=== PATIENT | female | born 1960 | race African-American/Black ===

== ENCOUNTER 2017-06-11 08:38 | Emergency (ER) | payer OTHER, MEDICAID ==
[2017-06-11] MEDS ORDERED: OXYCODONE-ACETAMINOPHEN 5-325 MG TABLET PO ONE (09:19)
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
[2017-06-11 10:33] VITALS: BP 179/86
== END 2017-06-11 10:25 | disposition home or self-care (01) ==
LOC: ER 08:38
PROC: 2W3QX1Z Immobilization of Right Lower Leg using Splint (ICD-10-PCS; principal; 2017-06-11)
DX: S63.509A Unspecified sprain of unspecified wrist, initial encounter (principal); S72.102A Unspecified trochanteric fracture of left femur, initial encounter for closed fracture; S93.401A Sprain of unspecified ligament of right ankle, initial encounter; S16.1XXA Strain of muscle, fascia and tendon at neck level, initial encounter; S29.012A Strain of muscle and tendon of back wall of thorax, initial encounter; M25.532 Pain in left wrist; M25.531 Pain in right wrist; V87.7XXA Person injured in collision between other specified motor vehicles (traffic), initial encounter
CPT/HCPCS: 99284; 73610; 73630; 73502; 73110; 72125; 29515; L1902

== ENCOUNTER → 2018-06-18 | Outpatient (CLI) | payer MEDICAID ==
[2018-06-18 10:52] LABS: ABSOLUTE BASOPHILS # (AUTO) 0.1 10^3/uL (0.0-0.2); ABSOLUTE EOSINOPHILS # (AUTO) 0.2 10^3/uL (0.0-0.6); ABSOLUTE LYMPHOCYTES (AUTO) 2.3 10^3/uL (0.5-4.7); ABSOLUTE MONOCYTES (AUTO) 0.4 10^3/uL (0.1-1.4); ABSOLUTE NEUT (AUTO) 3.6 10^3/uL (1.7-8.2); BASOPHILS % (AUTO) 0.9 % (0-2); EOSINOPHILS % (AUTO) 2.5 % (0-6); HEMATOCRIT 37.4 % (36.0-47.0); HEMOGLOBIN 11.7 g/dL (12.0-15.5); LYMPHOCYTES % (AUTO) 35.5 % (13-45); MEAN CORPUSCULAR HEMOGLOBIN 21.3 pg (27.0-33.4); MEAN CORPUSCULAR HGB CONC 31.2 g/dL (32.0-36.0); MEAN CORPUSCULAR VOLUME 68 fl (80-97); MONOCYTES % (AUTO) 6.1 % (3-13); PLATELET COUNT 218 10^3/uL (150-450); RED BLOOD COUNT 5.49 10^6/uL (3.72-5.28); RED CELL DISTRIBUTION WIDTH 14.7 % (11.5-14.0); TOTAL CELLS COUNTED % (AUTO) 100 %; WHITE BLOOD COUNT 6.5 10^3/uL (4.0-10.5)
[2018-06-18 11:12] LABS: ALANINE AMINOTRANSFERASE 25 U/L (9-52); ALBUMIN 3.7 g/dL (3.5-5.0); ALKALINE PHOSPHATASE 80 U/L (38-126); ANION GAP 14 (5-19); ASPARTATE AMINO TRANSFERASE 26 U/L (14-36); BILIRUBIN,DIRECT 0.3 mg/dL (0.0-0.4); BILIRUBIN,TOTAL 0.4 mg/dL (0.2-1.3); BLOOD UREA NITROGEN 18 mg/dL (7-20); CARBON DIOXIDE 29 mmol/L (22-30); CHLORIDE 102 mmol/L (98-107); CHOLESTEROL 246.65 mg/dL (0-200); GLUCOSE 232 mg/dL (75-110); POTASSIUM 4.1 mmol/L (3.6-5.0); SODIUM 144.9 mmol/L (137-145); TOTAL PROTEIN 7.1 g/dL (6.3-8.2); TRIGLYCERIDES 66 mg/dL (<150)
[2018-06-18 11:23] LABS: DIRECT LDL 161 mg/dL (<100)
[2018-06-19 11:38] LABS: CREATININE URINE 174.6 mg/dL (Not Estab.)
== END ==
LOC: OD 09:06
PROVIDERS: ATTEND Internal Medicine
DX: E11.9 Type 2 diabetes mellitus without complications (principal); I10 Essential (primary) hypertension; E78.5 Hyperlipidemia, unspecified; R53.83 Other fatigue
CPT/HCPCS: 36415; 80053; 80061; 82043; 82570; 83036; 84443; 85025

== ENCOUNTER 2019-03-29 09:19 | Day surgery (SDC) | payer MEDICAID ==
[~2019-03-29 09:19] MED LIST: KETOROLAC TROMETHAMINE 0.45% 4 DROP/0.4 ML DROPERETTE OS PRN
[2019-03-29] MEDS: TROPICAMIDE 1% OPH SOLN 3 ML OS PRN ×3 (10:32→10:53)
[2019-03-29] MEDS: CYCLOPENTOLATE 0.2%/PHENYLEPHRINE 1% OPH SOLN 2 ML OS PRN ×3 (10:32→10:53)
[2019-03-29] MEDS: BESIFLOXACIN HCL 0.6% OPH SUSP 5 ML BOTTLE OS PRN ×4 (10:33→11:46)
[2019-03-29] MEDS ORDERED: INSULIN REG, HUMAN 100 UNIT/ML 3 ML VIAL (PYX) ONE (10:34)
[2019-03-29] MEDS: TETRACAINE HCL 0.5% OPH SOLN 0.6 ML DROPERETTE OS PRN ×2 (10:34→11:01)
[2019-03-29] MEDS ORDERED: MIDAZOLAM 2 MG/2 ML INJ ONE (11:07)
[2019-03-29] MEDS ORDERED: FENTANYL CITRATE INJ/PF 100 MCG/2 ML AMPUL ONE (11:07)
[2019-03-29] MEDS: BUPIVACAINE HCL 0.75% INJ/PF (7.5 MG/1 ML) 10 ML SDV OS PRN ×2 (11:12)
[2019-03-29] MEDS: LIDOCAINE 4% INJ/PF (40 MG/ML) 5 ML AMPUL OS PRN ×2 (11:12)
[2019-03-29] MEDS: CHONDR SU A NA/HYALUR INTRAOC KIT (SURGICARE) ONE ×2 (11:27)
[2019-03-29] MEDS: EPINEPHRINE INJ/PF 1 MG/1 ML AMPULE ONE ×2 (11:27)
[2019-03-29] MEDS: LIDOCAINE 1% INJ-PF (10 MG/ML) 30 ML SDV ONE ×2 (11:27)
[2019-03-29] MEDS: TRYPAN BLUE 0.06 % OPH SOLN 0.5 ML DISP.SYRIN ONE ×2 (11:31)
[2019-03-29] MEDS: DORZOLAMIDE HCL 2%/TIMOLOL MALEAT 0.5% OPH SOLN 10 ML OS PRN ×2 (11:46)
--- NOTE | 2019-03-29 13:14 | [facility] OPERATIVE REPORT E ---
[facility] Operative Report NAME: STEVAN CHOUDHURY AGE: 59Y DATE OF SURGERY: 03/29/2019 ROOM: PREOPERATIVE DIAGNOSIS: Mature cataract, left eye. POSTOPERATIVE DIAGNOSIS: Mature cataract, left eye. PROCEDURE PERFORMED: Complex cataract extraction with intraocular lens implant, left eye. SURGEON: MICHAEL FLANNERY M.D. ANESTHESIA: Topical with MAC. INDICATIONS FOR SURGERY: No view of the retina and unable to evaluate for diabetic retinopathy and motion vision. INDICATION FOR COMPLEX: No red reflex due to mature lens. PROCEDURE: The patient was brought to the operating room and placed on the operative table. Following tetracaine drops, topical anesthesia was administered. This consisted of instrument wipe pledgets soaked in a solution of 4% Xylocaine mixed with 0.75% Marcaine in a 1:2 ratio. A 2 x 1 cm pledget was placed in the superior fornix. A 1 x 1 cm pledget was placed in the inferior fornix. The eye was patched shut for 5 minutes. The patch was removed. The eye was sterilely prepped and draped in the usual manner. Lid speculum was placed in the eye. The pledgets were removed and 4-0 black silk sutures were placed around the superior and the inferior rectus muscles to be used as traction. A conjunctival peritomy was made at the 10 o'clock position. Hemostasis was obtained with bipolar cautery. A posterior limbal groove was created using a crescent knife and dissected anteriorly towards the cornea. A sharp point blade was used to create a paracentesis site at the 2 o'clock position. Following the incision, a syringe with air was placed in the eye and Trypan Blue dye was needed to visualize the anterior capsule for the capsulotomy. A 2.4 mm keratome was used to enter the anterior chamber through the groove. Viscoelastic was injected into the anterior chamber. An anterior capsulotomy was performed using Utrata forceps in a capsulorrhexis fashion. Hydrodissection and hydrodelineation were performed. Phacoemulsification was performed in axmlev-[id number]-[id number] technique. Total phaco time was 39.20 CDE. Following this, the I/A unit was used to remove residual cortex. Viscoelastic was injected into the capsular bag. Intraocular lens model [id number], 21.5 diopters, serial number [id number], was placed in the capsular bag. The I/A unit was used to remove residual viscoelastic. The wound was seen to be watertight under high and low pressure, and no sutures were placed. The intraocular lens was well centered. The pressure was adjusted in the eye to normal pressure. The 4-0 black silk sutures and lid speculum were removed. The eye was shielded after Besivance drops were placed. The patient tolerated the procedure well and was sent to the recovery room in good condition. A drop of Cosopt was placed in the eye at the end of the surgery. DICTATING PHYSICIAN: MICHAEL FLANNERY M.D. [id number] PHY#: [id number] ID: [id number] JOB#: [id number] ACCT: [id number] cc:MICHAEL FLANNERY M.D. > MTDD
--- NOTE | 2019-03-29 13:19 | [facility] DISCHARGE SUMMARY E ---
[facility] Discharge Summary NAME: STEVAN CHOUDHURY AGE: 59Y ADMITTED: 03/29/2019 DISCHARGED: 03/29/2019 FINAL DIAGNOSIS: Mature cataract, left eye. HOSPITAL COURSE: The patient is a 59-year-old lady who underwent uneventful complex cataract extraction with intraocular lens implant, left eye, on 03/29/2019. She will be discharged to home. She was instructed to resume preoperative medications; to take Tylenol as needed for discomfort; to keep her eye shielded; to use Vigamox, Ilevro, and Durezol at 3 p.m. and 8 p.m.; and to follow up in my office in 1 day. DICTATING PHYSICIAN: MICHAEL FLANNERY M.D. [id number] PHY#: [id number] 1302 ID: [id number] JOB#: [id number] ACCT: [id number] cc:MICHAEL FLANNERY M.D. >
== END 2019-03-29 12:35 | disposition home or self-care (01) ==
LOC: SC 09:19
PROVIDERS: ATTEND Ophthalmology
DX: H25.89 Other age-related cataract (principal); E11.9 Type 2 diabetes mellitus without complications; E78.00 Pure hypercholesterolemia, unspecified; J45.909 Unspecified asthma, uncomplicated; Z87.891 Personal history of nicotine dependence; Z79.84 Long term (current) use of oral hypoglycemic drugs; E66.9 Obesity, unspecified; Z68.30 Body mass index [BMI] 30.0-30.9, adult; I11.0 Hypertensive heart disease with heart failure; H25.811 Combined forms of age-related cataract, right eye; E11.3311 Type 2 diabetes mellitus with moderate nonproliferative diabetic retinopathy with macular edema, right eye; D31.31 Benign neoplasm of right choroid
CPT/HCPCS: 66982; 82962; V2632; J2250; J3490 ×7; J0171; J3010; 142; J1815

== ENCOUNTER 2019-04-26 11:51 | Emergency (ER) | payer MEDICAID ==
[2019-04-26] MEDS ORDERED: NORMAL SALINE 1000 ML 1,000 ML IV ONE ×2 (12:10→14:22)
--- NOTE | 2019-04-26 12:10 | ER Document Report ---
ED Medical Screen (RME) - General Chief Complaint: High Blood Sugar Stated Complaint: NAUSEA Time Seen by Provider: 04/26/19 12:06 Primary Care Provider: YURY PETERSON MD [Primary Care Provider] - Follow up as needed TRAVEL OUTSIDE OF THE [place] IN LAST 30 DAYS: No - HPI Notes: 04/26/19 12:08 Patient is a 59-year-old female with a history of insulin-dependent diabetes, hypertension, asthma who presents complaining of nasal congestion/discharge, dry cough, nausea, elevated glucose in the 300s, and epigastric abdominal pain is been ongoing for the past 4 to 5 days. She has a history of cholecystectomy. She is still able to eat and drink, but does have a decreased p.o. intake. She is urinating normally and having normal bowel movements. Denies MORROW, fever, neck pain, CP, SOB, dysuria, back pain, or rash. I have treated and performed a rapid initial assessment of this patient. A comprehensive ED assessment and evaluation of the patient, analysis of test results and completion of medical decision making process will be conducted by additional ED providers. PHYSICAL EXAMINATION: GENERAL: Well-appearing, well-nourished and in no acute distress. A&Ox4. Answ ers questions appropriately. LUNGS: Breath sounds clear to auscultation bilaterally and equal. No wheezes rales or rhonchi. HEART: Regular rate and rhythm without murmurs, rubs, gallops. ABDOMEN: Soft, nondistended abdomen. No guarding, no rebound. Normal bowel sounds present. No CVA tenderness bilaterally. + mild epigastric tenderness (cannot elicit thorough abd exam w/o bed, however). Extremities: No cyanosis, clubbing, or edema b/l. NEUROLOGICAL: Normal speech, normal gait. PSYCH: Normal mood, normal affect. - Related Data Allergies/Adverse Reactions: Penicillins Allergy (Verified 04/26/19 12:04) Past Medical History - Social History Frequency of alcohol use: None Drug Abuse: None - Past Medical History Cardiac Medical History: Reports: Hx Hypercholesterolemia, Hx Hypertension Denies: Hx Heart Attack Pulmonary Medical History: Reports: Hx Asthma - NO MEDS Neurological Medical History: Denies: Hx Cerebrovascular Accident, Hx Seizures Endocrine Medical History: Reports: Hx Diabetes Mellitus Type 1, Hx Diabetes Mellitus Type 2 Renal/ Medical History: Denies: Hx Peritoneal Dialysis GI Medical History: Reports: Hx Hiatal Hernia, Hx Ulcer - 1979. Denies: Hx Hepatitis Skin Medical History: Reports Hx MRSA Infectious Medical History: Denies: Hx Hepatitis Past Surgical History: Reports: Hx Cholecystectomy, Hx Hysterectomy, Hx Orthopedic Surgery, Hx Tubal Ligation. Denies: Hx Mastectomy, Hx Open Heart Surgery, Hx Pacemaker - Immunizations Immunizations up to date: Yes Hx Diphtheria, Pertussis, Tetanus Vaccination: Yes Physical Exam - Vital signs Vitals: Temp Pulse Resp BP Pulse Ox 97.4 F 102 H 16 150/80 H 99 04/26/19 11:55 04/26/19 11:55 04/26/19 11:55 04/26/19 11:55 04/26/19 11:55 Course - Vital Signs Vital signs: Temp Pulse Resp BP Pulse Ox 97.4 F 102 H 16 150/80 H 99 04/26/19 11:55 04/26/19 11:55 04/26/19 11:55 04/26/19 11:55 04/26/19 11:55 Doctor's Discharge - Discharge Referrals: YURY PETERSON MD [Primary Care Provider] - Follow up as needed
[2019-04-26 12:37] LABS: ABSOLUTE EOSINOPHILS # (AUTO) 0.1 10^3/uL (0.0-0.6); ABSOLUTE LYMPHOCYTES (AUTO) 2.1 10^3/uL (0.5-4.7); ABSOLUTE MONOCYTES (AUTO) 0.4 10^3/uL (0.1-1.4); ABSOLUTE NEUT (AUTO) 4.7 10^3/uL (1.7-8.2); BASOPHILS % (AUTO) 0.6 % (0-2); EOSINOPHILS % (AUTO) 1.5 % (0-6); HEMATOCRIT 37.3 % (36.0-47.0); HEMOGLOBIN 11.8 g/dL (12.0-15.5); LYMPHOCYTES % (AUTO) 28.5 % (13-45); MEAN CORPUSCULAR HEMOGLOBIN 21.2 pg (27.0-33.4); MEAN CORPUSCULAR HGB CONC 31.5 g/dL (32.0-36.0); MEAN CORPUSCULAR VOLUME 67 fl (80-97); MONOCYTES % (AUTO) 5.6 % (3-13); PLATELET COUNT 237 10^3/uL (150-450); RED BLOOD COUNT 5.54 10^6/uL (3.72-5.28); RED CELL DISTRIBUTION WIDTH 14.2 % (11.5-14.0); SEGMENTED NEUTROPHILS % (AUTO) 63.8 % (42-78); TOTAL CELLS COUNTED % (AUTO) 100 %; WHITE BLOOD COUNT 7.4 10^3/uL (4.0-10.5)
[2019-04-26 12:42] LABS: APPEARANCE,URINE CLOUDY; BILIRUBIN,URINE NEGATIVE (NEGATIVE); COLOR,URINE YELLOW; GLUCOSE, URINE >=500 mg/dL (NEGATIVE); KETONES,URINE NEGATIVE (NEGATIVE); LEUKOCYTE ESTERASE,URINE LARGE (NEGATIVE); NITRITE,URINE NEGATIVE (NEGATIVE); PROTEIN,URINE 30 mg/dL (NEGATIVE); URINE SPECIFIC GRAVITY 1.013; UROBILINOGEN,URINE NEGATIVE mg/dL (<2.0)
--- NOTE | 2019-04-26 12:43 | RADIOLOGY REPORT (SQ) ---
EXAM DESCRIPTION: CHEST 2 VIEWS COMPLETED DATE/TIME: 04/26/2019 12:35 pm REASON FOR STUDY: cough COMPARISON: Two-view chest 06/03/2013 EXAM PARAMETERS: NUMBER OF VIEWS: two views TECHNIQUE: Digital Frontal and Lateral radiographic views of the chest acquired. RADIATION DOSE: NA LIMITATIONS: none FINDINGS: LUNGS AND PLEURA: No opacities, masses or pneumothorax. No pleural effusion. MEDIASTINUM AND HILAR STRUCTURES: No masses or contour abnormalities. HEART AND VASCULAR STRUCTURES: Heart normal size. No evidence for failure. BONES: No acute findings. HARDWARE: Clips right upper quadrant post cholecystectomy OTHER: No other significant finding. IMPRESSION: NO ACUTE RADIOGRAPHIC FINDING IN THE CHEST. TECHNICAL DOCUMENTATION: JOB ID: [id number] [employer]- All Rights Reserved Reading location - IP/workstation name: [email or web address]
[2019-04-26 13:00] LABS: ALANINE AMINOTRANSFERASE 25 U/L (9-52); ALBUMIN 4.6 g/dL (3.5-5.0); ALKALINE PHOSPHATASE 110 U/L (38-126); ANION GAP 18 (5-19); ASPARTATE AMINO TRANSFERASE 21 U/L (14-36); BILIRUBIN,DIRECT 0.3 mg/dL (0.0-0.4); BILIRUBIN,TOTAL 0.6 mg/dL (0.2-1.3); BLOOD UREA NITROGEN 30 mg/dL (7-20); CALCIUM 9.9 mg/dL (8.4-10.2); CARBON DIOXIDE 31 mmol/L (22-30); CHLORIDE 90 mmol/L (98-107); GLUCOSE 367 mg/dL (75-110); POTASSIUM 4.1 mmol/L (3.6-5.0); SODIUM 138.5 mmol/L (137-145); TOTAL PROTEIN 8.5 g/dL (6.3-8.2)
--- NOTE | 2019-04-26 15:18 | ER Document Report ---
ED General - General Chief Complaint: High Blood Sugar Stated Complaint: POSSIBLE HIGH BLOOD SUGAR Time Seen by Provider: 04/26/19 12:06 Primary Care Provider: YURY PETERSON MD [Primary Care Provider] - Follow up in 1 week Mode of Arrival: Ambulatory Information source: Patient Notes: Patient presents the emergency department with concerns about her diabetes. Reports she cannot get her sugar to go down below 300. Reports some nausea. She reports history of eye surgery and more planned next week. She reports cataracts. She reports on Thursday she went to her senior technical architect and had injections in her eye. Since then she has noticed that her blood sugar has been up. Patient reports she has not been eating really good lately. She admits to having a sun drop, fruit punch, candy and Dr. Jones . Upon further discussion the daughter reports that patient really has not been checking her blood sugar. She had lost her glucometer and they recently found it. When they took her sugar yesterday it was over 500. They took it again it was in the 300s and they cannot get it down. Patient took her normal diabetic medic medication this morning Victoza. She reports she typically drinks 10-12 bottles of water a day. Patient reports nausea but denies vomiting reports some diarrhea little bit this morning. TRAVEL OUTSIDE OF THE [place] IN LAST 30 DAYS: No - HPI Onset: Other Onset/Duration: Persistent Quality of pain: No pain Associated symptoms: Nausea Exacerbated by: Denies Relieved by: Denies Similar symptoms previously: Yes Recently seen / treated by doctor: No - Related Data Allergies/Adverse Reactions: Penicillins Allergy (Verified 04/26/19 12:04) Past Medical History - General Information source: Patient - Social History Smoking Status: Never Smoker Frequency of alcohol use: None Drug Abuse: None Lives with: Family Family History: None Patient has suicidal ideation: No Patient has homicidal ideation: No - Past Medical History Cardiac Medical History: Reports: Hx Hypercholesterolemia, Hx Hypertension Denies: Hx Heart Attack Pulmonary Medical History: Reports: Hx Asthma - NO MEDS Neurological Medical History: Denies: Hx Cerebrovascular Accident, Hx Seizures Endocrine Medical History: Reports: Hx Diabetes Mellitus Type 1, Hx Diabetes Mellitus Type 2 Renal/ Medical History: Denies: Hx Peritoneal Dialysis GI Medical History: Reports: Hx Hiatal Hernia, Hx Ulcer - 1979. Denies: Hx Hepatitis Skin Medical History: Reports Hx MRSA Infectious Medical History: Denies: Hx Hepatitis Past Surgical History: Reports: Hx Cholecystectomy, Hx Hysterectomy, Hx Orthopedic Surgery, Hx Tubal Ligation. Denies: Hx Mastectomy, Hx Open Heart Surgery, Hx Pacemaker - Immunizations Immunizations up to date: Yes Hx Diphtheria, Pertussis, Tetanus Vaccination: Yes Review of Systems - Review of Systems Notes: Review HPI for review of systems., All other systems negative Physical Exam - Vital signs Vitals: Temp Pulse Resp BP Pulse Ox 97.4 F 102 H 16 150/80 H 99 04/26/19 11:55 04/26/19 11:55 04/26/19 11:55 04/26/19 11:55 04/26/19 11:55 - Notes Notes: PHYSICAL EXAMINATION: GENERAL: Well-appearing and in no acute distress HEAD: Atraumatic, normocephalic. EYES: extraocular movements intact, sclera anicteric, conjunctiva are normal. ENT: nares patent, Moist mucous membranes. NECK: Normal range of motion, supple without lymphadenopathy LUNGS: CTAB and equal. No wheezes rales or rhonchi. HEART: Regular rate and rhythm without murmurs ABDOMEN: Soft, no tenderness. No guarding, no rebound EXTREMITIES: Normal range of motion, no pitting edema. No cyanosis. NEUROLOGICAL: Cranial nerves grossly intact. Normal sensory/motor exams. PSYCH: Normal mood, normal affect. SKIN: Warm, Dry, normal turgor, no rashes or lesions noted Course - Re-evaluation Re-evalutation: 04/26/19 16:06 She received 2 L of fluid. She reports she feels much better Accu-Chek now 288. Patient was instructed on the importance of following a diabetic diet avoid candy and soda pop. She was also instructed on the importance of monitoring her blood sugar and taking her medications as prescribed. Patient verbalized understanding to all instructions. Dictation of this chart was performed using voice recognition software; therefore, there may be some unintended grammatical errors. - Vital Signs Vital signs: Temp Pulse Resp BP Pulse Ox 98.5 F 101 H 18 134/80 H 97 04/26/19 16:15 04/26/19 16:15 04/26/19 16:15 04/26/19 16:15 04/26/19 16:15 - Laboratory Result Diagrams: 04/26/19 12:21 04/26/19 12:21 Laboratory results interpreted by me: 04/26/19 04/26/19 04/26/19 12:20 12:21 12:21 RBC 5.54 H Hgb 11.8 L MCV 67 L MCH 21.2 L MCHC 31.5 L RDW 14.2 H Chloride 90 L Carbon Dioxide 31 H BUN 30 H Est GFR ( Amer) 54 L Est GFR (Non-Af Amer) 44 L Glucose 367 H POC Glucose 346 H Total Protein 8.5 H Urine Protein Urine Glucose (UA) Ur Leukocyte Esterase 04/26/19 04/26/19 04/26/19 12:21 13:51 15:43 RBC Hgb MCV MCH MCHC RDW Chloride Carbon Dioxide BUN Est GFR ( Amer) Est GFR (Non-Af Amer) Glucose POC Glucose 321 H 288 H Total Protein Urine Protein 30 H Urine Glucose (UA) >=500 H Ur Leukocyte Esterase LARGE H Discharge - Discharge Clinical Impression: High blood sugar Diabetes Qualifiers: Diabetes mellitus type: type 2 Diabetes mellitus adjunct faculty for medical terminology insulin use: with care home use Diabetes mellitus complication status: without complication Qualified Code(s): E11.9 - Type 2 diabetes mellitus without complications Condition: Stable Disposition: HOME, SELF-CARE Instructions: Diabetes ([facility]) Additional Instructions: *You have been evaluated for high blood glucose, diabetes *Monitor your blood glucose, diet as directed for diabetes, avoid candy, soda *Take your medication as prescribed *Follow up with Dr Quintana within one week *Return to ED for worsening condition, changes, needs *Return to ED if not better in 24 hours Referrals: YURY PETERSON MD [Primary Care Provider] - Follow up in 1 week
[2019-04-26 16:20] VITALS: BP 134/80
== END 2019-04-26 16:20 | disposition home or self-care (01) ==
LOC: ER 11:51
DX: E11.65 Type 2 diabetes mellitus with hyperglycemia (principal); R11.0 Nausea; E78.00 Pure hypercholesterolemia, unspecified; I10 Essential (primary) hypertension; Z88.0 Allergy status to penicillin; Z86.14 Personal history of Methicillin resistant Staphylococcus aureus infection; Z90.49 Acquired absence of other specified parts of digestive tract
CPT/HCPCS: 99284; 96360; 96361; 36415; 82962; 83690; 85025; 80053; 81001; 71046; J7030